=== PATIENT | female | born 1950 | race African-American/Black ===

== ENCOUNTER 2022-06-26 13:43 | Inpatient (IN) | payer MEDICAID, MEDICARE, OTHER ==
[~2022-06-26] VITALS: Ht 162.6 cm; Wt 103.4 kg
[~2022-06-26 13:43] MED LIST: AMLO5TAB88 PO; ASPI-986 PO; ATOR40TA70 PO; FLONAS NS; FLUT1DIS6 IH; GLYB5TAB7 PO; LEVA15HF4 IH; METF-414 PO; METO-539 PO; PIOG15TA6 PO; PROT40 PO; VENL150C4 PO; [UNRECOGNIZED DRUG - OTHER] PO
[2022-06-26] MEDS ORDERED: FAMOTIDINE 20MG/2ML VIAL IV ONE (15:15)
[2022-06-26] MEDS ORDERED: ONDANSETRON HCL 4MG/2ML INJ IV ONE (15:15)
[2022-06-26] MEDS: ONDANSETRON HCL 4MG/2ML INJ IV STA ×2 (15:29→15:45)
[2022-06-26] MEDS ORDERED: KETOROLAC 30MG/ML VIAL IV STA (15:29)
[2022-06-26] MEDS ORDERED: SODIUM CHLORIDE 0.9% 1,000 ML IV ONE (15:30)
[2022-06-26] MEDS ORDERED: METOCLOPRAMIDE HCL 10MG/2ML VIAL IV ONE ×2 (18:45→21:15)
[2022-06-26 19:06] LABS: HEMATOCRIT. 39.3 % (36.0-48.0); HEMOGLOBIN. 12.9 g/dL (12.0-16.0); MEAN CORPUSCULAR HEMOGLOBIN 26.7 pg (28.0-32.0); MEAN CORPUSCULAR VOLUME 81.2 fL (81.0-99.0); MEAN PLATELET VOLUME 9.5 fl (7.4-10.4); PLATELET 290 x1000/uL (130-400); RED BLOOD CELL COUNT 4.84 mill/uL (4.2-5.4); RED CELL DISTRIBUTION WIDTH 15.9 % (11.6-14.6)
[2022-06-26 19:21] LABS: CHLORIDE 106 mEq/L (98-107)
[2022-06-26 19:42] LABS: PLATELET ESTIMATE NORMAL
[2022-06-26] MEDS ORDERED: METO-293 MT (20:30)
[2022-06-26] MEDS ORDERED: INSULIN REGULAR (HUMULIN R) 300UNITS/3ML VIAL SUBCUT ONE (22:00)
[2022-06-27] MEDS ORDERED: INSULIN REGULAR (HUMULIN R) 300UNITS/3ML VIAL SUBCUT NR (00:30)
[2022-06-27] MEDS: PANTOPRAZOLE SODIUM 40 MG/VIAL IV SCH ×2 (01:13→11:46)
[2022-06-27] MEDS ORDERED: IPRATROPIUM BROMIDE (0.02%) 0.5MG/2.5ML NEB ONE (01:26)
[2022-06-27] MEDS ORDERED: ALBUTEROL (0.083%) 2.5MG/3ML NEB ONE (01:26)
[2022-06-27 09:20] VITALS: BP 199/99
[2022-06-27 10:19] VITALS: BP 199/99
[2022-06-27] MEDS ORDERED: IPRATROPIUM/ALBUTEROL 0.5-3(2.5)MG/3ML NEB HHN PRN (10:30)
[2022-06-27] MEDS ORDERED: DEXTROSE 50% WATER 50ML SYRINGE IV PRN (10:30)
[2022-06-27] MEDS ORDERED: ACETAMINOPHEN 325MG TABLET PO PRN (10:30)
[2022-06-27] MEDS ORDERED: ENOXAPARIN 40MG/0.4ML SYR SUBCUT SCH (10:30)
[2022-06-27] MEDS: ONDANSETRON HCL 4MG/2ML INJ IV PRN ×2 (10:58→16:53)
[2022-06-27] MEDS: MORPHINE SULFATE 2 MG/ML CPJ (NOT FOR IM USE) IV PRN ×2 (10:58→17:01)
[2022-06-27] MEDS: SODIUM CHLORIDE 0.45% 1,000 ML IV SCH ×2 (11:07→23:02)
[2022-06-27] MEDS ORDERED: INSU100I28 SQ (11:31)
[2022-06-27] MEDS: METOCLOPRAMIDE HCL 10MG/2ML VIAL IV SCH ×3 (11:46→23:01)
[2022-06-27] MEDS: INSULIN LISPRO 100 UNITS/ML SUBCUT SCH ×3 (12:31→20:56)
[2022-06-27] MEDS: BLOOD SUGAR DIAGNOSTIC STRIP TEST SCH ×3 (12:32→20:57)
[2022-06-27] MEDS ORDERED: INFLUENZA VACCINE 05/PF 0.5 ML SYRINGE IM ONE (14:45)
[2022-06-27] MEDS ORDERED: PNEUMOCOCCAL 23-VAL P-SAC VAC 0.5 ML IM ONE (14:45)
[2022-06-27 16:00] VITALS: BP 171/77
[2022-06-27 20:00] VITALS: BP 146/79
[2022-06-27] MEDS: ENOXAPARIN 40MG/0.4ML SYR SUBCUT SCH (20:48)
[2022-06-27] MEDS: HYDRALAZINE HCL 50MG TABLET PO SCH (23:01)
[2022-06-28] VITALS (7 sets, daily range): BP systolic 95–168; BP diastolic 72–99
[2022-06-28] MEDS: MORPHINE SULFATE 2 MG/ML CPJ (NOT FOR IM USE) IV PRN ×3 (01:44→21:02)
[2022-06-28] MEDS: ONDANSETRON HCL 4MG/2ML INJ IV PRN ×3 (01:47→18:04)
[2022-06-28] MEDS: METOCLOPRAMIDE HCL 10MG/2ML VIAL IV SCH ×4 (06:13→23:37)
[2022-06-28] MEDS: HYDRALAZINE HCL 50MG TABLET PO SCH ×3 (06:28→21:03)
[2022-06-28] MEDS: BLOOD SUGAR DIAGNOSTIC STRIP TEST SCH ×4 (07:06→21:48)
[2022-06-28 08:21] LABS: BASOPHILS % 0.2 % (0.0-2.0); EOSINOPHILS % 0.2 % (0.0-5.0); HEMATOCRIT. 38.4 % (36.0-48.0); HEMOGLOBIN. 12.9 g/dL (12.0-16.0); LYMPHOCYTES % 12.8 % (20.0-50.0); MEAN CORPUSCULAR HEMOGLOBIN 27.3 pg (28.0-32.0); MEAN CORPUSCULAR VOLUME 80.9 fL (81.0-99.0); MEAN PLATELET VOLUME 9.8 fl (7.4-10.4); MONOCYTES % 7.1 % (2.0-8.0); NEUTROPHILS % 79.7 % (40.0-76.0); PLATELET 263 x1000/uL (130-400); RED BLOOD CELL COUNT 4.75 mill/uL (4.2-5.4); RED CELL DISTRIBUTION WIDTH 15.9 % (11.6-14.6)
[2022-06-28 08:39] LABS: CHLORIDE 100 mEq/L (98-107)
[2022-06-28 08:50] LABS: LDL CHOLESTEROL 104 mg/dL (5-100); T4 FREE 1.51 ng/dL (0.76-1.46)
[2022-06-28 09:07] LABS: HDL CHOLESTEROL 52 mg/dL (40-59)
[2022-06-28] MEDS: INSULIN LISPRO 100 UNITS/ML SUBCUT SCH ×4 (09:09→21:52)
[2022-06-28] MEDS: PANTOPRAZOLE SODIUM 40 MG/VIAL IV SCH (09:24)
[2022-06-28] MEDS: ENOXAPARIN 40MG/0.4ML SYR SUBCUT SCH ×2 (09:25→21:03)
[2022-06-28] MEDS: POTASSIUM CHLORIDE 20MEQ TABLET SR PO SCH (12:10)
[2022-06-28] MEDS: SODIUM CHLORIDE 0.45% 1,000 ML IV SCH ×2 (12:10→23:38)
[2022-06-28] MEDS ORDERED: LEVOFLOXACIN 500MG PREMIX 100 ML IV SCH (13:00)
[2022-06-28 17:07] LABS: CLARITY URINE CLEAR (CLEAR); COLOR URINE YELLOW (YELLOW); KETONES URINE TRACE (NEGATIVE); LEUKOCYTE ESTERASE URINE 1+ (NEGATIVE); NITRITE URINE NEGATIVE (NEGATIVE); OCCULT BLOOD URINE 1+ (NEGATIVE); PH URINE 5.5 (4.5-8.0); PROTEIN URINE 2+ (NEGATIVE); SPECIFIC GRAVITY URINE 1.022 (1.005-1.030); UROBILINOGEN URINE 0.2 E.U./dL (0.2-1.0)
[2022-06-29] VITALS: BP 101/71
[2022-06-29] MEDS: ONDANSETRON HCL 4MG/2ML INJ IV PRN ×3 (00:04→12:52)
[2022-06-29 04:00] VITALS: BP 129/58
[2022-06-29] MEDS: HYDRALAZINE HCL 50MG TABLET PO SCH ×3 (06:02→21:10)
[2022-06-29] MEDS: METOCLOPRAMIDE HCL 10MG/2ML VIAL IV SCH ×3 (06:02→17:59)
[2022-06-29] MEDS: MORPHINE SULFATE 2 MG/ML CPJ (NOT FOR IM USE) IV PRN (06:04)
[2022-06-29 06:57] LABS: BASOPHILS % 0.3 % (0.0-2.0); HEMATOCRIT. 37.4 % (36.0-48.0); HEMOGLOBIN. 12.4 g/dL (12.0-16.0); LYMPHOCYTES % 12.7 % (20.0-50.0); MEAN CORPUSCULAR HEMOGLOBIN 26.7 pg (28.0-32.0); MEAN CORPUSCULAR VOLUME 80.5 fL (81.0-99.0); MEAN PLATELET VOLUME 9.6 fl (7.4-10.4); MONOCYTES % 7.7 % (2.0-8.0); NEUTROPHILS % 79.3 % (40.0-76.0); PLATELET 283 x1000/uL (130-400); RED BLOOD CELL COUNT 4.65 mill/uL (4.2-5.4); RED CELL DISTRIBUTION WIDTH 15.5 % (11.6-14.6)
[2022-06-29] MEDS: BLOOD SUGAR DIAGNOSTIC STRIP TEST SCH ×4 (07:06→20:46)
[2022-06-29 07:40] LABS: CHLORIDE 101 mEq/L (98-107)
[2022-06-29 08:00] VITALS: BP 159/80
[2022-06-29] MEDS: PANTOPRAZOLE SODIUM 40 MG/VIAL IV SCH (09:08)
[2022-06-29] MEDS: POTASSIUM CHLORIDE 20MEQ TABLET SR PO SCH (09:09)
[2022-06-29] MEDS: ENOXAPARIN 40MG/0.4ML SYR SUBCUT SCH ×2 (09:09→21:03)
[2022-06-29] MEDS: INSULIN LISPRO 100 UNITS/ML SUBCUT SCH ×4 (09:40→21:08)
[2022-06-29 12:00] VITALS: BP 182/88
[2022-06-29] MEDS: SODIUM CHLORIDE 0.45% 1,000 ML IV SCH (12:30)
[2022-06-29] MEDS ORDERED: LEVOFLOXACIN 500MG PREMIX 100 ML IV SCH (14:00)
[2022-06-29 16:00] VITALS: BP 159/85
[2022-06-29] MEDS: METOPROLOL SUCCINATE 50MG ER TABLET PO SCH ×2 (16:22→17:00)
[2022-06-29 19:27] VITALS: BP 158/72
[2022-06-30 00:36] VITALS: BP 160/68
[2022-06-30] MEDS: SODIUM CHLORIDE 0.45% 1,000 ML IV SCH (01:00)
[2022-06-30] MEDS: METOCLOPRAMIDE HCL 10MG/2ML VIAL IV SCH ×2 (05:30)
[2022-06-30 07:15] LABS: BASOPHILS % 0.3 % (0.0-2.0); EOSINOPHILS % 0.2 % (0.0-5.0); HEMATOCRIT. 37.9 % (36.0-48.0); HEMOGLOBIN. 12.8 g/dL (12.0-16.0); LYMPHOCYTES % 18.1 % (20.0-50.0); MEAN CORPUSCULAR HEMOGLOBIN 27.2 pg (28.0-32.0); MEAN CORPUSCULAR VOLUME 80.9 fL (81.0-99.0); MEAN PLATELET VOLUME 9.8 fl (7.4-10.4); MONOCYTES % 9.7 % (2.0-8.0); NEUTROPHILS % 71.7 % (40.0-76.0); PLATELET 253 x1000/uL (130-400); RED BLOOD CELL COUNT 4.68 mill/uL (4.2-5.4); RED CELL DISTRIBUTION WIDTH 15.9 % (11.6-14.6)
[2022-06-30] MEDS: BLOOD SUGAR DIAGNOSTIC STRIP TEST SCH ×2 (07:20→12:09)
[2022-06-30] MEDS: INSULIN LISPRO 100 UNITS/ML SUBCUT SCH ×2 (07:50→12:24)
[2022-06-30 08:00] VITALS: BP_SYST 116; BP_SYST 153; BP_DIAS 75; BP_DIAS 77
[2022-06-30] MEDS: PANTOPRAZOLE SODIUM 40 MG/VIAL IV SCH (09:00)
[2022-06-30] MEDS: HYDRALAZINE HCL 50MG TABLET PO SCH (09:12)
[2022-06-30] MEDS: ENOXAPARIN 40MG/0.4ML SYR SUBCUT SCH (09:12)
[2022-06-30] MEDS: METOPROLOL SUCCINATE 50MG ER TABLET PO SCH (09:12)
[2022-06-30] MEDS: POTASSIUM CHLORIDE 20MEQ TABLET SR PO SCH (09:12)
[2022-06-30 12:00] VITALS: BP 145/83
== END 2022-06-30 14:46 | disposition home or self-care (01) | DRG 74 ==
LOC: ER 13:43 → MICUSO 06-27 00:50 → 6EST 06-27 09:02
PROVIDERS: ADMIT Internal Medicine; ATTEND Internal Medicine
DX: E11.43 Type 2 diabetes mellitus with diabetic autonomic (poly)neuropathy (principal); N39.0 Urinary tract infection, site not specified; K31.84 Gastroparesis; E11.65 Type 2 diabetes mellitus with hyperglycemia; I10 Essential (primary) hypertension; F12.90 Cannabis use, unspecified, uncomplicated; D72.829 Elevated white blood cell count, unspecified; F32.A Depression, unspecified; Z88.0 Allergy status to penicillin; Z90.49 Acquired absence of other specified parts of digestive tract; Z79.4 Long term (current) use of insulin
CPT/HCPCS: 36415; 74176; 80048; 80053; 80061; 81003; 82962; 83036; 84439; 84443; 84484; 85025; 93005; 99285; C1893; C9113; J1650; J1815; J1885; J1956; J2270; J2405; J2765; J3490; J7030

== ENCOUNTER 2023-07-31 08:54 | Inpatient (IN) | payer MEDICARE, OTHER ==
[~2023-07-31] VITALS: Ht 162.6 cm; Wt 104.3 kg
[~2023-07-31 08:54] MED LIST changes: +ABIL5 MT; -GLYB5TAB7 PO; +INSU100I28 SQ; +LANTUSUD SUBCUT; -METF-414 PO; +METO-293 MT
[2023-07-31] MEDS ORDERED: ONDANSETRON HCL 4MG/2ML INJ IV STA (09:24)
[2023-07-31] MEDS ORDERED: MORPHINE SULFATE 4 MG/ML CPJ (NOT FOR IM USE) IV STA (09:24)
[2023-07-31] MEDS ORDERED: SODIUM CHLORIDE 0.9% 1,000 ML IV ONE (09:30)
[2023-07-31 10:05] LABS: HEMATOCRIT. 43.3 % (36.0-48.0); HEMOGLOBIN. 13.5 g/dL (12.0-16.0); MEAN CORPUSCULAR HEMOGLOBIN 24.9 pg (28.0-32.0); MEAN CORPUSCULAR HGB CONC 31.2 g/dL (31.0-37.0); MEAN CORPUSCULAR VOLUME 79.9 fL (81.0-99.0); MEAN PLATELET VOLUME 10.6 fl (7.4-10.4); PLATELET 262 x1000/uL (130-400); RED BLOOD CELL COUNT 5.42 mill/uL (4.2-5.4); RED CELL DISTRIBUTION WIDTH 15.8 % (11.6-14.6); WHITE BLOOD COUNT 21.2 x1000/uL (4.5-11.0)
[2023-07-31 10:18] LABS: CHLORIDE 71 mEq/L (98-107); DIFFERENTIAL COMMENT 1; INDEX HEMOLYSI 1 (1-3); INDEX ICTERIC 1 (1-4); INDEX LIPEMIC 1 (1-3); SODIUM 122 mEq/L (136-145)
[2023-07-31 10:25] LABS: PROTHROMBIN TIME 10.3 sec (9.6-11.0)
[2023-07-31 10:27] LABS: ALANINE AMINOTRANSFERASE 32 IU/L (13-61); ALBUMIN 3.1 g/dL (3.4-5.0); ASPARTATE AMINOTRANSFERASE 36 IU/L (15-37); BETA HYDROXYBUTYRATE 4.3 mMol/L (0.0-0.3); BILIRUBIN TOTAL 0.9 mg/dL (0.1-1.0); CALCIUM 9.8 mg/dL (8.5-10.1); CARBON DIOXIDE 33 mEq/L (21-32); CREATININE 2.5 mg/dL (0.6-1.3); ETHANOL BLOOD < 10 mg/dL (<10); UREA NITROGEN BLOOD 63 mg/dL (7-21)
[2023-07-31 10:42] LABS: BG BASE EXCESS 7.7 mmol/L (-2.0-2.0); BG CARBOXYHEMOGLOBIN 1.2 % (0.5-1.5); BG DEOXYHEMOGLOBIN 6.8 % (0.0-5.0); BG FRACTION INSPIRED OXYGEN 21; BG HCO3 ACT 28.7 mmol/L (22.0-26.0); BG METHEMOGLOBIN 0.4 % (0.0-1.5); BG OXYGEN SATURATION 93.1 % (92.0-98.5); BG OXYHEMOGLOBIN 91.6 % (94.0-97.0); BG PCO2 29.4 mmHg (35.0-45.0); BG PH 7.607 (7.350-7.450); BG PO2 61.8 mmHg (75.0-100.0); BG SAMPLE SITE RIGHT BRACHIAL; BG TOTAL HEMOGLOBIN 14.1 g/dL (12.0-18.0); BG VENT MODE ROOM AIR
[2023-07-31 10:43] LABS: GLUCOSE 763 mg/dL (70-105); LACTIC ACID 5.1 mmol/L (0.4-2.0); TROPONIN I HIGH SENSITIVITY 175 ng/L (<54)
[2023-07-31] MEDS ORDERED: INSULIN REGULAR (HUMULIN R) 300UNITS/3ML VIAL IV ONE (10:45)
[2023-07-31] MEDS ORDERED: DEXTROSE 50% WATER 50ML SYRINGE IV PRN (10:45)
[2023-07-31] MEDS ORDERED: POTASSIUM CHLORIDE INJ 40 MEQ in SODIUM CHLORIDE 0.9% 230 ML IV PRN (10:45)
[2023-07-31] MEDS ORDERED: MAGNESIUM 2 G PREMIX 100 ML IV PRN (10:45)
[2023-07-31] MEDS ORDERED: CEFTRIAXONE 1GM PREMIX 50 ML IV ONE (10:45)
[2023-07-31] MEDS ORDERED: INSULIN REGULAR (DRIP) 100 UNITS in SODIUM CHLORIDE 0.9% 99 ML IV SCH (10:45)
[2023-07-31] MEDS: BLOOD SUGAR DIAGNOSTIC STRIP TEST SCH ×14 (10:48→23:48)
[2023-07-31] MEDS ORDERED: KCL 20MEQ/100ML PREMIX 100 ML IV ONE (11:00)
[2023-07-31] MEDS ORDERED: POTASSIUM CHLORIDE 20MEQ TABLET SR PO ONE (11:00)
[2023-07-31] MEDS ORDERED: INSULIN REGULAR 100U/100ML PMX 100 ML IV SCH (11:15)
[2023-07-31 11:36] LABS: CARBON DIOXIDE 27 mEq/L (21-32); CHLORIDE 71 mEq/L (98-107); POTASSIUM 3.1 mEq/L (3.5-5.1); SODIUM 123 mEq/L (136-145)
[2023-07-31 11:41] LABS: PHOSPHORUS 4.8 mg/dL (2.5-4.9)
[2023-07-31 12:17] LABS: TROPONIN I HIGH SENSITIVITY 153 ng/L (<54)
[2023-07-31] MEDS ORDERED: FAMOTIDINE 20MG/2ML VIAL IV ONE (13:30)
[2023-07-31 13:36] LABS: ANISOCYTOSIS 1+; PLATELET ESTIMATE NORMAL
[2023-07-31] MEDS ORDERED: FAMOTIDINE 20MG/2ML VIAL IV NR (14:45)
[2023-07-31 15:47] LABS: BASOPHILS % 0.2 % (0.0-2.0); EOSINOPHILS % 0.1 % (0.0-5.0); HEMATOCRIT. 43.2 % (36.0-48.0); HEMOGLOBIN. 13.7 g/dL (12.0-16.0); LYMPHOCYTES % 7.1 % (20.0-50.0); MEAN CORPUSCULAR HEMOGLOBIN 25.5 pg (28.0-32.0); MEAN CORPUSCULAR HGB CONC 31.8 g/dL (31.0-37.0); MEAN CORPUSCULAR VOLUME 80.3 fL (81.0-99.0); MEAN PLATELET VOLUME 9.5 fl (7.4-10.4); MONOCYTES % 5.1 % (2.0-8.0); NEUTROPHILS % 87.5 % (40.0-76.0); PLATELET 222 x1000/uL (130-400); RED BLOOD CELL COUNT 5.38 mill/uL (4.2-5.4); RED CELL DISTRIBUTION WIDTH 15.9 % (11.6-14.6); WHITE BLOOD COUNT 20.4 x1000/uL (4.5-11.0)
[2023-07-31 15:52] LABS: CHLORIDE 79 mEq/L (98-107); INDEX HEMOLYSI 2 (1-3); INDEX ICTERIC 1 (1-4); INDEX LIPEMIC 1 (1-3); POTASSIUM 3.3 mEq/L (3.5-5.1); SODIUM 125 mEq/L (136-145)
[2023-07-31 15:59] LABS: ALANINE AMINOTRANSFERASE 31 IU/L (13-61); ALBUMIN 2.9 g/dL (3.4-5.0); ASPARTATE AMINOTRANSFERASE 32 IU/L (15-37); BILIRUBIN TOTAL 0.6 mg/dL (0.1-1.0); CALCIUM 8.9 mg/dL (8.5-10.1); CARBON DIOXIDE 33 mEq/L (21-32); CREATININE 2.1 mg/dL (0.6-1.3); PHOSPHORUS 4.2 mg/dL (2.5-4.9); PROTEIN TOTAL 7.7 g/dL (6.0-8.3); UREA NITROGEN BLOOD 52 mg/dL (7-21)
[2023-07-31 16:18] LABS: GLUCOSE 639 mg/dL (70-105)
[2023-07-31] MEDS ORDERED: IPRATROPIUM/ALBUTEROL 0.5-3(2.5)MG/3ML NEB HHN PRN (16:45)
[2023-07-31] MEDS ORDERED: ONDANSETRON HCL 4MG/2ML INJ IV PRN (16:45)
[2023-07-31 16:52] LABS: CLARITY URINE CLEAR (CLEAR); COLOR URINE YELLOW (YELLOW); GLUCOSE URINE 3+ (NEGATIVE); KETONES URINE 2+ (NEGATIVE); LEUKOCYTE ESTERASE URINE NEGATIVE (NEGATIVE); NITRITE URINE NEGATIVE (NEGATIVE); OCCULT BLOOD URINE 1+ (NEGATIVE); PH URINE 5.5 (4.5-8.0); PROTEIN URINE 1+ (NEGATIVE); SPECIFIC GRAVITY URINE 1.028 (1.005-1.030); UROBILINOGEN URINE 0.2 E.U./dL (0.2-1.0)
[2023-07-31 16:58] LABS: BACTERIA URINE 1+; SQUAMOUS EPITHELIAL CELL URINE 1+ /lpf (RARE/1+); YEAST URINE NONE SEEN
[2023-07-31 17:11] LABS: *AMPHETAMINES SCREEN URINE NEGATIVE (NEGATIVE); *BARBITURATES SCREEN URINE NEGATIVE (NEGATIVE); *BENZODIAZEPINES SCREEN URINE NEGATIVE (NEGATIVE); *COCAINE SCREEN URINE NEGATIVE (NEGATIVE); CANNABINOID URINE SCREEN PRESUMTIVE POSITIVE (NEGATIVE); ECSTASY MDMA SCREEN URINE NEGATIVE (NEGATIVE); METHADONE URINE SCREEN NEGATIVE (NEGATIVE); OPIATES URINE SCREEN PRESUMTIVE POSITIVE (NEGATIVE); PHENCYCLIDINE URINE SCREEN NEGATIVE (NEGATIVE)
[2023-07-31 21:00] VITALS: BP 146/69; PULSE 82; RESP 28; TEMP 97.7
[2023-07-31 22:00] VITALS: BP 128/66; PULSE 80; RESP 24
[2023-07-31 22:00] LABS: BG BASE EXCESS 12.7 mmol/L (-2.0-2.0); BG DEOXYHEMOGLOBIN 6.4 % (0.0-5.0); BG FRACTION INSPIRED OXYGEN 21; BG HCO3 ACT 36.4 mmol/L (22.0-26.0); BG METHEMOGLOBIN 0.1 % (0.0-1.5); BG OXYGEN SATURATION 93.5 % (92.0-98.5); BG OXYHEMOGLOBIN 92.5 % (94.0-97.0); BG PCO2 42.8 mmHg (35.0-45.0); BG PH 7.548 (7.350-7.450); BG PO2 64.3 mmHg (75.0-100.0); BG SAMPLE SITE RIGHT RADIAL; BG TOTAL HEMOGLOBIN 14.1 g/dL (12.0-18.0); BG VENT MODE ROOM AIR
[2023-07-31 22:10] VITALS: BP 146/69; PULSE 80; RESP 17; TEMP 97.7
[2023-07-31] MEDS: ENOXAPARIN 30MG/0.3ML SYR SUBCUT SCH (22:50)
[2023-07-31 23:00] VITALS: BP 118/72; PULSE 82; RESP 27
[2023-08-01] VITALS (36 sets, daily range): BP systolic 113–167; BP diastolic 56–85; PULSE 80–90; RESP 7–27; TEMP 97.8–98.8
[2023-08-01 00:29] LABS: POTASSIUM 3.1 mEq/L (3.5-5.1)
[2023-08-01] MEDS ORDERED: MAGNESIUM/ALUMINUM HYDROXIDE/SIMETHICONE 30ML UDC PO PRN (00:30)
[2023-08-01] MEDS ORDERED: DEXTROSE 50% WATER 50ML SYRINGE IV PRN (00:30)
[2023-08-01 00:40] LABS: CREATINE KINASE MB FRACTION 1.9 ng/mL (0.5-3.6)
[2023-08-01 00:41] LABS: BETA HYDROXYBUTYRATE 1.3 mMol/L (0.0-0.3); CALCIUM 9.2 mg/dL (8.5-10.1); PHOSPHORUS 3.1 mg/dL (2.5-4.9)
[2023-08-01] MEDS: PANTOPRAZOLE SODIUM 40 MG/VIAL IV SCH ×2 (01:08→09:04)
[2023-08-01] MEDS: CEFEPIME 1,000 MG in DEXTROSE 5% WATER 50 ML IV SCH ×3 (01:09→22:55)
[2023-08-01] MEDS: SODIUM CHL 0.9% + KCL 20MEQ/L 1,000 ML IV SCH ×3 (01:10→12:31)
[2023-08-01] MEDS: BLOOD SUGAR DIAGNOSTIC STRIP TEST SCH ×5 (04:00→20:32)
[2023-08-01] MEDS: INSULIN LISPRO 100 UNITS/ML SUBCUT SCH ×5 (04:14→20:32)
[2023-08-01 05:33] LABS: HEMATOCRIT. 41.1 % (36.0-48.0); HEMOGLOBIN. 13.1 g/dL (12.0-16.0); MEAN CORPUSCULAR HEMOGLOBIN 25.6 pg (28.0-32.0); MEAN PLATELET VOLUME 10.2 fl (7.4-10.4); PLATELET 209 x1000/uL (130-400); RED BLOOD CELL COUNT 5.14 mill/uL (4.2-5.4); RED CELL DISTRIBUTION WIDTH 15.5 % (11.6-14.6)
[2023-08-01 05:36] LABS: POTASSIUM 3.5 mEq/L (3.5-5.1)
[2023-08-01 05:51] LABS: CALCIUM 8.7 mg/dL (8.5-10.1); CREATINE KINASE MB FRACTION 1.5 ng/mL (0.5-3.6); CREATININE 1.8 mg/dL (0.6-1.3)
[2023-08-01 07:23] LABS: DIFFERENTIAL COMMENT 1
[2023-08-01 14:27] LABS: ANISOCYTOSIS 1+; PLATELET ESTIMATE NORMAL
[2023-08-01] MEDS ORDERED: INFLUENZA VACCINE 05/PF 0.5 ML SYRINGE IM ONE (15:00)
[2023-08-01] MEDS ORDERED: PNEUMOCOCCAL 23-VAL P-SAC VAC 0.5 ML IM ONE (15:00)
[2023-08-01] MEDS: ENOXAPARIN 30MG/0.3ML SYR SUBCUT SCH (22:18)
[2023-08-02] VITALS (12 sets, daily range): BP systolic 105–146; BP diastolic 59–84; PULSE 73–88; RESP 11–27; TEMP 97.4–98.4
[2023-08-02] MEDS: INSULIN LISPRO 100 UNITS/ML SUBCUT SCH ×7 (00:29→23:48)
[2023-08-02] MEDS: BLOOD SUGAR DIAGNOSTIC STRIP TEST SCH ×7 (00:29→23:48)
[2023-08-02] MEDS ORDERED: THROAT LOZENGES-BENZOCAINE/MENTH/CETYLPYRD CL LOZENGES MM PRN (00:45)
[2023-08-02] MEDS: CEFEPIME 1,000 MG in DEXTROSE 5% WATER 50 ML IV SCH ×2 (08:26→21:27)
[2023-08-02] MEDS: PANTOPRAZOLE SODIUM 40 MG/VIAL IV SCH (08:26)
[2023-08-02] MEDS ORDERED: LIDOCAINE HCL 1% 10 MG/ML 10ML VIAL ONE (12:14)
[2023-08-02 12:21] LABS: BASOPHILS % 0.1 % (0.0-2.0); EOSINOPHILS % 0.7 % (0.0-5.0); HEMATOCRIT. 37.4 % (36.0-48.0); HEMOGLOBIN. 11.9 g/dL (12.0-16.0); LYMPHOCYTES % 12.3 % (20.0-50.0); MEAN CORPUSCULAR HEMOGLOBIN 25.4 pg (28.0-32.0); MEAN CORPUSCULAR HGB CONC 31.8 g/dL (31.0-37.0); MEAN PLATELET VOLUME 9.5 fl (7.4-10.4); MONOCYTES % 7.3 % (2.0-8.0); NEUTROPHILS % 79.6 % (40.0-76.0); PLATELET 163 x1000/uL (130-400); RED BLOOD CELL COUNT 4.67 mill/uL (4.2-5.4); RED CELL DISTRIBUTION WIDTH 15.5 % (11.6-14.6); WHITE BLOOD COUNT 12.3 x1000/uL (4.5-11.0)
[2023-08-02 12:40] LABS: POTASSIUM 3.8 mEq/L (3.5-5.1)
[2023-08-02 12:50] LABS: ALBUMIN 2.4 g/dL (3.4-5.0); BETA HYDROXYBUTYRATE 0.7 mMol/L (0.0-0.3); BILIRUBIN DIRECT 0.1 mg/dL (0.0-0.2); BILIRUBIN TOTAL 0.4 mg/dL (0.1-1.0); CALCIUM 8.3 mg/dL (8.5-10.1); CREATININE 1.4 mg/dL (0.6-1.3); PROTEIN TOTAL 6.7 g/dL (6.0-8.3)
[2023-08-02] MEDS ORDERED: MAGNESIUM/ALUMINUM HYDROXIDE/SIMETHICONE 30ML UDC PO PRN (14:30)
[2023-08-02] MEDS: ATORVASTATIN CALCIUM 40MG TABLET PO SCH (20:09)
[2023-08-02] MEDS: ENOXAPARIN 30MG/0.3ML SYR SUBCUT SCH (20:10)
[2023-08-02] MEDS: SODIUM CHL 0.9% + KCL 20MEQ/L 1,000 ML IV SCH (21:27)
[2023-08-03] VITALS (12 sets, daily range): BP systolic 130–152; BP diastolic 62–109; PULSE 79–105; RESP 14–26; TEMP 97.3–97.9
[2023-08-03] MEDS: INSULIN LISPRO 100 UNITS/ML SUBCUT SCH ×6 (04:00→23:34)
[2023-08-03] MEDS: BLOOD SUGAR DIAGNOSTIC STRIP TEST SCH ×6 (04:00→23:29)
[2023-08-03] MEDS ORDERED: PNEUMOCOCCAL 23-VAL P-SAC VAC 0.5 ML IM ONE (06:00)
[2023-08-03] MEDS: SODIUM CHL 0.9% + KCL 20MEQ/L 1,000 ML IV SCH ×3 (06:07→17:20)
[2023-08-03] MEDS ORDERED: INFLUENZA VACCINE 05/PF 0.5 ML SYRINGE IM ONE (06:30)
[2023-08-03 07:05] LABS: BASOPHILS % 0.4 % (0.0-2.0); DIFFERENTIAL COMMENT 0; EOSINOPHILS % 1.2 % (0.0-5.0); HEMATOCRIT. 35.2 % (36.0-48.0); HEMOGLOBIN. 11.5 g/dL (12.0-16.0); LYMPHOCYTES % 14.7 % (20.0-50.0); MEAN CORPUSCULAR HGB CONC 32.6 g/dL (31.0-37.0); MEAN CORPUSCULAR VOLUME 79.7 fL (81.0-99.0); MEAN PLATELET VOLUME 10.7 fl (7.4-10.4); MONOCYTES % 9.6 % (2.0-8.0); NEUTROPHILS % 74.1 % (40.0-76.0); PLATELET 173 x1000/uL (130-400); RED BLOOD CELL COUNT 4.42 mill/uL (4.2-5.4); RED CELL DISTRIBUTION WIDTH 15.6 % (11.6-14.6); WHITE BLOOD COUNT 10.7 x1000/uL (4.5-11.0)
[2023-08-03 07:31] LABS: POTASSIUM 4.2 mEq/L (3.5-5.1)
[2023-08-03 07:37] LABS: CREATININE 1.2 mg/dL (0.6-1.3)
[2023-08-03] MEDS: ENOXAPARIN 30MG/0.3ML SYR SUBCUT SCH ×2 (08:23→20:49)
[2023-08-03] MEDS: PANTOPRAZOLE SODIUM 40 MG/VIAL IV SCH (08:34)
[2023-08-03] MEDS: CEFEPIME 1,000 MG in DEXTROSE 5% WATER 50 ML IV SCH (08:34)
[2023-08-03] MEDS: METOCLOPRAMIDE HCL 10MG/2ML VIAL IV SCH (17:20)
[2023-08-03] MEDS: ATORVASTATIN CALCIUM 40MG TABLET PO SCH (20:49)
[2023-08-04] VITALS: BP 133/77; PULSE 88; RESP 16; TEMP 97.9
[2023-08-04] MEDS: METOCLOPRAMIDE HCL 10MG/2ML VIAL IV SCH ×3 (01:06→13:26)
[2023-08-04] MEDS: CEFEPIME 1,000 MG in DEXTROSE 5% WATER 50 ML IV SCH ×2 (01:07→09:44)
[2023-08-04] MEDS: SODIUM CHL 0.9% + KCL 20MEQ/L 1,000 ML IV SCH ×2 (01:07→09:43)
[2023-08-04 04:00] VITALS: BP 98/30; PULSE 89; RESP 13; TEMP 97.9
[2023-08-04] MEDS: INSULIN LISPRO 100 UNITS/ML SUBCUT SCH ×3 (04:00→13:28)
[2023-08-04] MEDS: BLOOD SUGAR DIAGNOSTIC STRIP TEST SCH ×4 (04:00→13:23)
[2023-08-04 08:00] VITALS: BP 116/68; PULSE 96; RESP 18; TEMP 97.5
[2023-08-04] MEDS ORDERED: FAMOTIDINE 20MG TABLET PO SCH (09:00)
[2023-08-04] MEDS: ENOXAPARIN 30MG/0.3ML SYR SUBCUT SCH (09:43)
[2023-08-04 12:00] VITALS: BP 129/65; PULSE 98; RESP 20; TEMP 98.1
[2023-08-04 14:31] VITALS: BP 152/87; PULSE 94; TEMP 98.1; O2SAT 96
[2023-08-04 16:00] VITALS: BP 128/73; PULSE 99; RESP 22; TEMP 97.8
== END 2023-08-04 16:40 | disposition home or self-care (01) | DRG 639 ==
LOC: ER 08:54 → EDBEDREQ 11:35 → EDBEDREQTM 11:35 → EDBEDREQSVC 11:35 → CVICU 21:25 → 5EST 08-01 17:55
PROVIDERS: ADMIT Internal Medicine; ATTEND Internal Medicine
PROC: 02HV33Z Insertion of Infusion Device into Superior Vena Cava, Percutaneous Approach (ICD-10-PCS; principal; 2023-08-02)
PROC: B548ZZA Ultrasonography of Superior Vena Cava, Guidance (ICD-10-PCS; 2023-08-02)
DX: E11.10 Type 2 diabetes mellitus with ketoacidosis without coma (principal); I12.9 Hypertensive chronic kidney disease with stage 1 through stage 4 chronic kidney disease, or unspecified chronic kidney disease; K31.84 Gastroparesis; N18.9 Chronic kidney disease, unspecified; R32 Unspecified urinary incontinence; E66.9 Obesity, unspecified; Z68.39 Body mass index [BMI] 39.0-39.9, adult; F32.A Depression, unspecified; E11.43 Type 2 diabetes mellitus with diabetic autonomic (poly)neuropathy; E11.22 Type 2 diabetes mellitus with diabetic chronic kidney disease; Z79.4 Long term (current) use of insulin; Z88.0 Allergy status to penicillin; Z91.199 Patient's noncompliance with other medical treatment and regimen due to unspecified reason
CPT/HCPCS: 36415; 36573; 36600; 71045; 74176; 80048; 80051; 80053; 80061; 80076; 80305; 80320; 81003; 82010; 82375; 82550; 82553; 82805; 82962; 83036; 83605; 83735; 83930; 84100; 84145; 84484; 85025; 90686; 90732; 93005; 99291; C1725; C1769; C1893; C9113; J0692; J0696; J1650; J1815; J2270; J2405; J2765; J3480; J3490; J7030; J7050; J7060; G0480

== ENCOUNTER 2024-01-27 08:09 | Emergency (ER) | payer MEDICARE ==
[~2024-01-27] VITALS: Ht 162.6 cm; Wt 91.0 kg
[~2024-01-27 08:09] MED LIST changes: +EFXR15 PO; +HYDR50SY PO; -INSU100I28 SQ; +LEVO-65 MT; +OLME1TAB90 PO; -VENL150C4 PO; -[UNRECOGNIZED DRUG - OTHER] PO
[2024-01-27 08:14] VITALS: BP 148/76; PULSE 100; TEMP 98.7; O2SAT 100
[2024-01-27] MEDS ORDERED: ACETAMINOPHEN 650MG/20.3ML UDC PO ONE (10:45)
== END 2024-01-27 11:53 | disposition home or self-care (01) ==
LOC: ER 08:09
DX: R60.9 Edema, unspecified (principal); J45.909 Unspecified asthma, uncomplicated; F32.9 Major depressive disorder, single episode, unspecified; E11.9 Type 2 diabetes mellitus without complications; E78.00 Pure hypercholesterolemia, unspecified; I10 Essential (primary) hypertension
CPT/HCPCS: 93970; 99284